=== PATIENT | male | born 1960 | race African-American/Black ===

== ENCOUNTER → 2017-05-01 | Outpatient (CLI) | payer OTHER ==
--- NOTE | 2017-05-01 11:03 | KCIC ---
Limited right lower quadrant ultrasound HISTORY: Abdominal distention, evaluate for hernia COMPARISON: None FINDINGS: Multiple sonographic images of the abdomen are submitted. There is severe quantity of ascites present. Tract of fluid extends into the right groin, this pocket of fluid on the order of 6 x 1.6 x 4.8 cm in size, apparently at site of hernia tract given continuity with other free fluid in the abdomen. Visualized liver is enlarged at 25 cm longitudinal, diffuse prominent coarsened echotexture. IMPRESSION: 1. There is large quantity of ascites present. Tract of fluid extends into the right groin region presumably at site of hernia as apparently contiguous with other free fluid. 2. Visualized liver is enlarged, diffuse coarsening of the hepatic echotexture likely due to steatosis versus other hepatocellular disease. Electronically signed by: Donald Browning MD (05/01/2017 10:59 AM)
== END | disposition home or self-care (01) ==
LOC: KCIC US 09:19
PROVIDERS: ATTEND Family Medicine
DX: K40.90 Unilateral inguinal hernia, without obstruction or gangrene, not specified as recurrent (principal); R18.8 Other ascites
CPT/HCPCS: 93975

== ENCOUNTER → 2017-05-11 | Outpatient (CLI) | payer OTHER ==
[~2017-05-11] MED LIST: AMLO1TAB95 PO; BYSTOLIC2.5 MG PO; GADOBUTROL 10 MMOL/10 ML VIAL IV ONE
--- NOTE | 2017-05-11 13:24 | KCIC ---
History: Ascites, abnormal abdominal ultrasound. Comparison: Limited abdominal ultrasound May 01, 2017. Technique: MRI of the abdomen with attention to the liver was performed using multiple planes and sequences both prior to and after intravenous gadolinium, 10 mL Gadavist. Findings: The liver demonstrates a mildly nodular contour. In the midclavicular line, the liver is mildly enlarged measuring about 19 cm in craniocaudal dimension. There is severe but asymmetric fatty infiltration of the liver. No focal, enhancing liver masses are identified. Mild-moderate ascites is seen. There is evidence of infrarenal abdominal aortic aneurysm which measures up to 4.3 cm in AP dimension. Bilateral kidneys enhance symmetrically. Bilateral adrenal glands and pancreas are unremarkable. The spleen demonstrates several foci of susceptibility artifact on multiple sequences which are probably areas of coarse calcification. Spleen is enlarged measuring 14.9 cm in craniocaudal dimension. Gallbladder on the T2-weighted images may demonstrate a mild amount of fine gallstones versus gallbladder sludge. Impression: 1. Liver is enlarged and demonstrates a mildly nodular contour. Findings are compatible with early changes of the cirrhosis and. There is also evidence of severe, asymmetric fatty infiltration of the liver. 2. Splenomegaly. Mild-moderate ascites. 3. Infrarenal abdominal aortic aneurysm estimated to measure 4.3 cm. 4. Question small amount of fine gallstones versus gallbladder sludge. Electronically signed by: Siddhartha Armstrong MD (05/11/2017 1:21 PM)
== END | disposition home or self-care (01) ==
LOC: KCIC MRI 08:28
PROVIDERS: ATTEND Family Medicine
DX: R93.5 Abnormal findings on diagnostic imaging of other abdominal regions, including retroperitoneum (principal); R18.8 Other ascites; K76.0 Fatty (change of) liver, not elsewhere classified; I71.4 Abdominal aortic aneurysm, without rupture; R16.1 Splenomegaly, not elsewhere classified
CPT/HCPCS: 74183; A9585

== ENCOUNTER → 2017-08-23 | Outpatient (CLI) | payer OTHER ==
[~2017-08-23] VITALS: Ht 177.8 cm; Wt 94.8 kg
[~2017-08-23] MED LIST changes: +ALBUMIN HUMAN 25% 100 ML IV ONE; +AMLO10TA2 PO; +ASPI-482 PO; +ATEN100T PO; +ATOR40TA59 PO; +CRESTOR20 MG PO; +FEBU40TA PO; +FURO20TA3 PO; -GADOBUTROL 10 MMOL/10 ML VIAL IV ONE; +LEVO25TA4 PO; +LIDOCAINE 1% / SOD BICARB 8.4% 20 ML VIAL. IJ ONE; +PROVENTIL HFA6.7 GM IH; +SPIR50TA2 PO; +TIOT18CA IH
[2017-08-23 07:40] LABS: BASO % 0 % (0-3); EOS % 3 % (0-3); HEMATOCRIT 35.6 % (39.0-53.0); HEMOGLOBIN 11.2 g/dL (13.0-17.5); LYMPH # 1.1 x10^3/uL (1.0-4.8); LYMPH % 14 % (24-48); MEAN CORPUSCULAR HEMOGLOBIN 29 pg (25-35); MEAN CORPUSCULAR HGB CONC 32 g/dL (31-37); MEAN CORPUSCULAR VOLUME 93 fL (79-100); MONO % 6 % (0-9); NEUT % 77 % (31-73); PLATELET COUNT 286 x10^3/uL (140-400); RED BLOOD COUNT 3.84 x10^6/uL (4.30-5.70); RED CELL DISTRIBUTION WIDTH 16.2 % (11.5-14.5); WHITE BLOOD COUNT 7.9 x10^3/uL (4.0-11.0)
[2017-08-23 08:01] LABS: INR 1.3 (0.8-1.1)
[2017-08-23 08:24] VITALS: BP 137/81
--- NOTE | 2017-08-23 08:49 | PDOC1 ---
History and Physical Date of Procedure Date of Admission 08/23/17 Procedure Procedure Paracentesis Indication Indication Ascites History of Present Illness Reason for Visit Same Past Medical History Past Medical History Cirrhosis, HTN, hyperlipidemia, COPD, gout Past Surgical History Past Surgical History Reviewed and none pertinent Current Medications Current Medications Current Medications Lidocaine/Sodium Bicarbonate (Buffered Lidocaine 1%) 20 ml STK-MED ONCE IJ ; Start 08/23/17 at 07:59; Stop 08/23/17 at 08:00; Status DC Active Scripts Active Reported Proventil Hfa Inhaler (Albuterol Sulfate) 6.7 Gm Hfa.aer.ad 1 Puff IH PRN Q4HRS PRN Spiriva (Tiotropium [place]) 18 Mcg Cap.w.dev 1 Cap IH DAILY Furosemide 20 Mg Tablet 1 Tab PO DAILY Levothyroxine Sodium 25 Mcg Tablet 1 Tab PO DAILY Spironolactone 50 Mg Tablet 1 Tab PO DAILY Atenolol 100 Mg Tablet 1 Tab PO DAILY Amlodipine Besylate 10 Mg Tablet 10 Mg PO DAILY Atorvastatin Calcium 40 Mg Tablet 1 Tab PO DAILY Uloric (Febuxostat) 40 Mg Tablet 1 Tab PO DAILY Allergies Allergies: Coded Allergies: No Known Drug Allergies (Unverified , 05/10/16) Physical Exam Vital Signs Vital Signs Date Time Temp Pulse Resp B/P (MAP) Pulse Ox O2 Delivery O2 Flow Rate FiO2 08/23/17 08:24 98.3 81 18 137/81 (99) 94 Room Air 98.3 Other GENERAL: No apparent distress. Alert and oriented. HEENT: Head normocephalic, atraumatic. NECK: Supple LUNGS: Clear to auscultation. HEART: RRR, S1, S2 present, pulses intact ABDOMEN: Distended, soft, positive bowel sounds. EXTREMITIES: No cyanosis or edema. NEUROLOGIC: Normal speech, normal tone PSYCHIATRIC: Normal affect, normal mood. SKIN: No ulceration. Assessment Assessment Ascites Problems: Plan Plan Paracentesis MARLY DECKER MD Aug 23, 2017 08:49
[2017-08-23 08:53] VITALS: BP 135/76
[2017-08-23 09:09] VITALS: BP 130/77
[2017-08-23 09:40] VITALS: BP 111/64
--- NOTE | 2017-08-23 09:44 | PDOC ---
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
--- NOTE | 2017-08-23 10:01 | RAD ---
Procedure: Ultrasound guided paracentesis. Indication: Ascites The procedure, risks, and complications, to include damage to hollow and solid abdominal viscera, bleeding, peritonitis and infection were explained to the patient and they understood same and wished to proceed. Consent form signed. The right lower quadrant was prepped and draped using maximal sterile technique and 1% Xylocaine used for local anesthesia. Ultrasound-guided paracentesis: Under ultrasound guidance, a large pocket of fluid was identified and an 18 gauge Yueh needle was inserted into the fluid and 6700 cc of thin, articular fluid was removed. The catheter was removed and pressure placed. An ultrasound image was saved and sent to PACS. The patient tolerated the procedure well and return to the recovery area in stable condition. IMPRESSION: Ultrasound-guided paracentesis.
== END | disposition home or self-care (01) ==
LOC: INTRAD 07:14
PROVIDERS: ATTEND Internal Medicine Gastroenterology
DX: R18.8 Other ascites (principal); F17.200 Nicotine dependence, unspecified, uncomplicated; J44.9 Chronic obstructive pulmonary disease, unspecified; I10 Essential (primary) hypertension
CPT/HCPCS: 36415; 49083; 85025; 85610; P9046

== ENCOUNTER 2017-10-10 08:26 | Outpatient (CLI) | payer OTHER ==
[2017-10-10] VITALS (8 sets, daily range): BP systolic 103–117; BP diastolic 68–75
[~2017-10-10] VITALS: Ht 177.8 cm; Wt 94.8 kg
[~2017-10-10 08:26] MED LIST changes: -ALBUMIN HUMAN 25% 100 ML IV ONE; -LIDOCAINE 1% / SOD BICARB 8.4% 20 ML VIAL. IJ ONE
[2017-10-10 08:55] LABS: BASO % 1 % (0-3); EOS % 2 % (0-3); HEMATOCRIT 38.9 % (39.0-53.0); HEMOGLOBIN 12.7 g/dL (13.0-17.5); LYMPH # 1.3 x10^3/uL (1.0-4.8); LYMPH % 22 % (24-48); MEAN CORPUSCULAR HEMOGLOBIN 30 pg (25-35); MEAN CORPUSCULAR HGB CONC 33 g/dL (31-37); MEAN CORPUSCULAR VOLUME 92 fL (79-100); MONO % 8 % (0-9); NEUT % 68 % (31-73); PLATELET COUNT 243 x10^3/uL (140-400); RED BLOOD COUNT 4.23 x10^6/uL (4.30-5.70); RED CELL DISTRIBUTION WIDTH 13.9 % (11.5-14.5); WHITE BLOOD COUNT 6.2 x10^3/uL (4.0-11.0)
[2017-10-10 09:03] LABS: INR 1.1 (0.8-1.1); PROTHROMBIN TIME PATIENT 13.2 SEC (11.7-14.0)
[2017-10-10] MEDS ORDERED: LIDOCAINE 1% / SOD BICARB 8.4% 20 ML VIAL. IJ ONE ×2 (09:09→10:15)
[2017-10-10] MEDS ORDERED: ALBUMIN HUMAN 25% 100 ML IV STA (10:59)
[2017-10-10] MEDS ORDERED: ALBUMIN HUMAN 25% 100 ML IV ONE (11:00)
--- NOTE | 2017-10-10 12:29 | RAD ---
Procedure: Ultrasound guided paracentesis. Indication: Ascites The procedure, risks, and complications, to include damage to hollow and solid abdominal viscera, bleeding, peritonitis and infection were explained. Informed consent was obtained. The right lower quadrant was prepped and draped using maximal sterile technique and 1% Xylocaine used for local anesthesia. Ultrasound-guided paracentesis: Under ultrasound guidance, a large pocket of fluid was identified and an 18 gauge Yueh needle was inserted into the fluid and 6700 cc of serosanguineous fluid was removed. The catheter was removed and pressure placed. An ultrasound image was saved and sent to PACS. The patient tolerated the procedure well and return to the recovery area in stable condition. Albumin replacement was ordered. IMPRESSION: Ultrasound-guided paracentesis.
== END 2017-10-10 12:30 | disposition home or self-care (01) ==
LOC: INTRAD 08:26
PROVIDERS: ATTEND Internal Medicine Gastroenterology
DX: R18.8 Other ascites (principal); I10 Essential (primary) hypertension; J44.9 Chronic obstructive pulmonary disease, unspecified; F17.200 Nicotine dependence, unspecified, uncomplicated; Z94.4 Liver transplant status
CPT/HCPCS: 36415; 49083; 85025; 85610; P9046

== ENCOUNTER 2017-11-10 07:01 | Outpatient (CLI) | payer OTHER ==
[~2017-11-10] VITALS: Ht 177.8 cm; Wt 86.6 kg
[2017-11-10] VITALS (12 sets, daily range): BP systolic 106–128; BP diastolic 55–77
[2017-11-10 07:45] LABS: BASO # 0.1 x10^3/uL (0.0-0.2); BASO % 1 % (0-3); EOS % 1 % (0-3); HEMATOCRIT 36.6 % (39.0-53.0); HEMOGLOBIN 11.9 g/dL (13.0-17.5); LYMPH # 1.3 x10^3/uL (1.0-4.8); LYMPH % 20 % (24-48); MEAN CORPUSCULAR HEMOGLOBIN 30 pg (25-35); MEAN CORPUSCULAR HGB CONC 33 g/dL (31-37); MEAN CORPUSCULAR VOLUME 92 fL (79-100); MONO % 6 % (0-9); NEUT % 72 % (31-73); PLATELET COUNT 251 x10^3/uL (140-400); RED BLOOD COUNT 3.98 x10^6/uL (4.30-5.70); RED CELL DISTRIBUTION WIDTH 14.4 % (11.5-14.5); WHITE BLOOD COUNT 6.2 x10^3/uL (4.0-11.0)
[2017-11-10 07:56] LABS: INR 1.2 (0.8-1.1); PROTHROMBIN TIME PATIENT 14.7 SEC (11.7-14.0)
[2017-11-10] MEDS ORDERED: ALLO300T PO (08:19)
[2017-11-10] MEDS ORDERED: ALBUMIN HUMAN 25% 100 ML IV ONE ×2 (08:46→09:00)
--- NOTE | 2017-11-10 17:13 | RAD ---
Ultrasound-guided paracentesis 11/10/2017 8:35 AM Procedure: Informed consent was obtained. A timeout procedure was performed. Sonographic evaluation of the abdomen was performed demonstrating . The right lower quadrant was prepped and draped using sterile barrier technique. Elements of maximal sterile barrier technique including the use of a cap, mask, sterile gown, sterile gloves sterile sheet, appropriate hand hygiene, and 2% chlorhexidine for cutaneous antisepsis (or acceptable alternative antiseptic per current guidelines) were followed for this procedure. 1% lidocaine without epinephrine was administered for local anesthesia. Real-time ultrasonographic guidance was used in passing a 5 Turkmen Yueh catheter into the fluid collection. 6 L of serous ascites was removed. The catheter was removed and pressure held to achieve hemostasis. A sterile dressing was applied. Impression: Successful ultrasound-guided paracentesis
== END 2017-11-10 10:00 | disposition home or self-care (01) ==
LOC: INTRAD 07:01
PROVIDERS: ATTEND Internal Medicine Gastroenterology
DX: R18.8 Other ascites (principal); I10 Essential (primary) hypertension; J44.9 Chronic obstructive pulmonary disease, unspecified; F17.200 Nicotine dependence, unspecified, uncomplicated; Z72.89 Other problems related to lifestyle
CPT/HCPCS: 36415; 49083; 85025; 85610; P9046

== ENCOUNTER 2017-12-19 06:56 | Outpatient (CLI) | payer OTHER ==
[2017-12-19 07:22] LABS: ADD MAN DIFF? NO
[2017-12-19 07:49] LABS: BASO % 1 % (0-3); EOS # 0.1 x10^3/uL (0.0-0.7); EOS % 2 % (0-3); HEMATOCRIT 36.5 % (39.0-53.0); LYMPH # 1.1 x10^3/uL (1.0-4.8); LYMPH % 18 % (24-48); MEAN CORPUSCULAR HEMOGLOBIN 30 pg (25-35); MEAN CORPUSCULAR HGB CONC 33 g/dL (31-37); MEAN CORPUSCULAR VOLUME 92 fL (79-100); MONO # 0.4 x10^3/uL (0.0-1.1); MONO % 7 % (0-9); NEUT # 4.6 x10^3uL (1.8-7.7); NEUT % 73 % (31-73); PLATELET COUNT 265 x10^3/uL (140-400); RED BLOOD COUNT 3.96 x10^6/uL (4.30-5.70); RED CELL DISTRIBUTION WIDTH 15.2 % (11.5-14.5); WHITE BLOOD COUNT 6.3 x10^3/uL (4.0-11.0)
[2017-12-19 08:11] LABS: INR 1.2 (0.8-1.1); PROTHROMBIN TIME PATIENT 14.3 SEC (11.7-14.0)
[2017-12-19] MEDS ORDERED: LIDOCAINE WITH 8.4% SOD BICARB 3 ML DISP.SYRIN. (08:14)
[2017-12-19] MEDS: LIDOCAINE WITH 8.4% SOD BICARB 3 ML DISP.SYRIN. IJ (09:20)
== END 2017-12-19 10:15 | disposition home or self-care (01) ==
LOC: INTRAD 06:56
DX: R18.8 Other ascites (principal); I10 Essential (primary) hypertension; J44.9 Chronic obstructive pulmonary disease, unspecified; F17.200 Nicotine dependence, unspecified, uncomplicated; Z72.89 Other problems related to lifestyle
CPT/HCPCS: 36415; 49083; 85025; 85610

== ENCOUNTER → 2018-01-22 | Outpatient (CLI) | payer OTHER | END | disposition home or self-care (01) | LOC: KCIC 13:51 | DX: J44.9 Chronic obstructive pulmonary disease, unspecified (principal); J90 Pleural effusion, not elsewhere classified; Z87.891 Personal history of nicotine dependence | CPT/HCPCS: 71046 ==

== ENCOUNTER 2018-01-31 07:00 | Outpatient (CLI) | payer OTHER ==
[2018-01-31 07:37] LABS: ADD MAN DIFF? NO
[2018-01-31 07:43] LABS: BASO % 1 % (0-3); EOS # 0.1 x10^3/uL (0.0-0.7); EOS % 2 % (0-3); HEMATOCRIT 40.4 % (39.0-53.0); HEMOGLOBIN 13.5 g/dL (13.0-17.5); LYMPH # 1.4 x10^3/uL (1.0-4.8); LYMPH % 24 % (24-48); MEAN CORPUSCULAR HEMOGLOBIN 32 pg (25-35); MEAN CORPUSCULAR HGB CONC 33 g/dL (31-37); MEAN CORPUSCULAR VOLUME 95 fL (79-100); MONO # 0.4 x10^3/uL (0.0-1.1); MONO % 7 % (0-9); NEUT # 3.9 x10^3uL (1.8-7.7); NEUT % 66 % (31-73); PLATELET COUNT 218 x10^3/uL (140-400); RED BLOOD COUNT 4.24 x10^6/uL (4.30-5.70); RED CELL DISTRIBUTION WIDTH 15.6 % (11.5-14.5); WHITE BLOOD COUNT 5.9 x10^3/uL (4.0-11.0)
[2018-01-31 07:55] LABS: INR 1.1 (0.8-1.1); PARTIAL THROMBOPLASTIN TIME 27 SEC (24-38); PROTHROMBIN TIME PATIENT 13.4 SEC (11.7-14.0)
[2018-01-31] MEDS ORDERED: LIDOCAINE WITH 8.4% SOD BICARB 3 ML DISP.SYRIN. (08:45)
[2018-01-31] MEDS: LIDOCAINE WITH 8.4% SOD BICARB 3 ML DISP.SYRIN. INJ (09:22)
== END 2018-01-31 10:10 | disposition home or self-care (01) ==
LOC: INTRAD 07:00
DX: R18.8 Other ascites (principal); K74.60 Unspecified cirrhosis of liver; I10 Essential (primary) hypertension; J44.9 Chronic obstructive pulmonary disease, unspecified
CPT/HCPCS: 36415; 49083; 85025; 85610; 85730

== ENCOUNTER → 2018-07-12 | Outpatient (CLI) | payer OTHER ==
[~2018-07-12] VITALS: Ht 177.8 cm; Wt 89.8 kg
[~2018-07-12] MED LIST changes: +ALLO300T PO; +ASPI-612 PO; +LIDOCAINE WITH 8.4% SOD BICARB 3 ML DISP.SYRIN. ONE; +MILK87.5 PO; -SPIR50TA2 PO; +SPIR50TA4 PO
[2018-07-12 07:43] LABS: BASO % 1 % (0-3); EOS # 0.1 x10^3/uL (0.0-0.7); EOS % 2 % (0-3); HEMATOCRIT 35.5 % (39.0-53.0); LYMPH # 1.3 x10^3/uL (1.0-4.8); LYMPH % 23 % (24-48); MEAN CORPUSCULAR HEMOGLOBIN 32 pg (25-35); MEAN CORPUSCULAR HGB CONC 34 g/dL (31-37); MEAN CORPUSCULAR VOLUME 95 fL (79-100); MONO # 0.4 x10^3/uL (0.0-1.1); MONO % 7 % (0-9); NEUT # 3.8 x10^3uL (1.8-7.7); NEUT % 68 % (31-73); PLATELET COUNT 166 x10^3/uL (140-400); RED BLOOD COUNT 3.73 x10^6/uL (4.30-5.70); RED CELL DISTRIBUTION WIDTH 13.7 % (11.5-14.5); WHITE BLOOD COUNT 5.5 x10^3/uL (4.0-11.0)
[2018-07-12 07:46] VITALS: BP 131/80
[2018-07-12 08:02] LABS: PROTHROMBIN TIME PATIENT 13.9 SEC (11.7-14.0)
== END | disposition home or self-care (01) ==
LOC: INTRAD 06:54
PROVIDERS: ATTEND Internal Medicine Gastroenterology
DX: K74.60 Unspecified cirrhosis of liver (principal); E78.5 Hyperlipidemia, unspecified; E78.00 Pure hypercholesterolemia, unspecified; E87.5 Hyperkalemia; E83.42 Hypomagnesemia; K21.9 Gastro-esophageal reflux disease without esophagitis; J44.9 Chronic obstructive pulmonary disease, unspecified; Z87.891 Personal history of nicotine dependence; Z82.49 Family history of ischemic heart disease and other diseases of the circulatory system
CPT/HCPCS: 36415; 76705; 85025; 85610

== ENCOUNTER → 2020-01-22 | Outpatient (CLI) | payer OTHER ==
[2018-07-12 07:46] VITALS: BP 131/80
[~2020-01-22] MED LIST changes: -AMLO10TA2 PO; +AMLO10TA8 PO; -LIDOCAINE WITH 8.4% SOD BICARB 3 ML DISP.SYRIN. ONE
--- NOTE | 2020-01-22 10:44 | KCIC ---
SCAN OF ABDOMINAL AORTA History: Abdominal aortic aneurysm Comparison: February 13, 2019 Findings: Multiple sonographic images of the abdominal aorta are submitted. Iliac arteries could not be visualized on this exam due to bowel gas. Proximal abdominal aorta measured up to 3.1 cm (similar), mid abdominal aorta up to 3 cm (previously up to 2.8 cm), distally up to 4.7 cm (previously up to about 4.6 cm). Aneurysmal dilatation of the abdominal aorta distally extends over about 6.7 cm in AP length. Peak systolic velocities of the abdominal aorta were 68 cm proximally, 61 cm/s near the mid segment, and 31 cm/s distally. There is segmental visualization of the inferior vena cava. Impression: 1. There is again aneurysmal dilatation of the abdominal aorta greater distally up to 4.7 cm, minimally increased compared with the previous exam. Electronically signed by: Donald Browning MD (01/22/2020 10:41 AM) [id number]
== END ==
LOC: KCIC US 09:36
PROVIDERS: ATTEND Family Medicine
DX: I71.4 Abdominal aortic aneurysm, without rupture (principal)
CPT/HCPCS: 76770

== ENCOUNTER 2020-04-16 18:52 | Inpatient (IN) | payer OTHER ==
[~2020-04-16] VITALS: Ht 177.8 cm; Wt 88.1 kg
--- NOTE | 2020-04-16 20:37 | RAD ---
Examination: CHEST AP ONLY History: Reason: soa / Spl. Instructions: / History: Comparison: 02/13/2018 AP view of the chest. Findings: AP portable upright frontal view of the chest was obtained. The cardiomediastinal silhouette is normal. Lungs are clear. There is no pneumothorax. No pleural effusion is appreciated. No acute bone abnormality. IMPRESSION: No acute cardiopulmonary process. Electronically signed by: Clyde Hendricks MD (04/16/2020 8:34 PM) [id number]
--- NOTE | 2020-04-16 20:52 | PHYS DOC ---
Past Medical History Past Medical History: COPD, Hypertension, Other Additional Past Medical Histor: gout Past Surgical History: No Surgical History Smoking Status: Former Smoker Alcohol Use: Heavy Drug Use: None General Adult EDM: Chief Complaint: WEAKNESS/GENERALIZED HPI: HPI: Patient is a 59-year-old male with a several day history of generalized weakness. Patient states he feels so weak now that he is unable to even walk. He also states he gets very short of breath when he tries to exert himself. He denies any fever chills or sweats. He has had a cough but this is been nonproductive. He denies any nausea or vomiting. He does state he has had some liver cirrhosis in the past and he now seems to have a little more abdominal swelling. [] Review of Systems: Review of Systems: Constitutional: Denies fever or chills. [] Eyes: Denies change in visual acuity. [] HENT: Denies nasal congestion or sore throat. [] Respiratory: Reports shortness of breath. [] Cardiovascular: Denies chest pain or edema. [] GI: Per HPI. [] : Denies dysuria. [] Musculoskeletal: Denies back pain or joint pain. [] Integument: Denies rash. [] Neurologic: Denies headache, focal weakness or sensory changes. [] Endocrine: Denies polyuria or polydipsia. [] Lymphatic: Denies swollen glands. [] Psychiatric: Reports depression. [] Heart Score: Risk Factors: Risk Factors: DM, Current or recent (<one month) smoker, HTN, HLP, family history of CAD, obesity. Risk Scores: Score 0 - 3: 2.5% MACE over next 6 weeks - Discharge Home Score 4 - 6: 20.3% MACE over next 6 weeks - Admit for Clinical Observation Score 7 - 10: 72.7% MACE over next 6 weeks - Early Invasive Strategies Allergies: Allergies: Allergies Coded Allergies Type Severity Reaction Last Updated Verified No Known Drug Allergies 05/10/16 No Physical Exam: PE: Constitutional: Well developed, well nourished, appears acutely ill and smells very ketotic [] HENT: Normocephalic, atraumatic, bilateral external ears normal, oropharynx moist, very poor dentition [] Eyes: PERRLA, EOMI, conjunctiva normal, no discharge. [] Neck: Normal range of motion, no tenderness, supple, no stridor. [] Cardiovascular:Heart rate regular rhythm, no murmur [] Lungs & Thorax: Bilateral breath sounds clear to auscultation [] Abdomen: Periumbilical hernia that is easily reducible, bowel sounds normal, soft, no tenderness, no masses, no pulsatile masses. [] Skin: Warm, dry, no erythema, no rash. [] Back: No tenderness, no CVA tenderness. [] Extremities: No tenderness, no cyanosis, no clubbing, ROM intact, no edema. [] Neurologic: Alert and oriented X 3, normal motor function, normal sensory function, no focal deficits noted. [] Psychologic: Depressed affect [] Current Patient Data: Vital Signs: Vital Signs Date Time Temp Pulse Resp B/P (MAP) Pulse Ox O2 Delivery O2 Flow Rate FiO2 04/16/20 19:12 97.9 82 15 144/82 (102) 97 Room Air 97.9 EKG: EKG: EKG: Normal sinus rhythm nonspecific ST-T changes no obvious ischemia [] Radiology/Procedures: Radiology/Procedures: []REASON: abd pain PROCEDURE: CT ABDOMEN PELVIS WO CONTRAST CT ABDOMEN PELVIS WO CONTRAST INDICATION: abd pain EXAM: Noncontrast CT of the abdomen and pelvis. Coronal and sagittal reformatted images were performed. PQRS compliance statement: One or more of the following individualized dose reduction techniques were utilized for this examination: 1. Automated exposure control 2. Adjustment of the mA and/or kV according to patient size 3. Use of iterative reconstruction technique COMPARISON: None FINDINGS: No free air, free fluid, or fluid collection. Lower chest: The visualized lower lungs are aerated. No pleural or pericardial effusion. Coronary artery atherosclerotic disease. ABDOMEN: Liver: The noncontrast liver is homogeneous in attenuation. Gallbladder and biliary: Cholelithiasis. Normal caliber bile ducts. Spleen: Normal spleen. Pancreas: The noncontrast pancreas is homogeneous in attenuation without peripancreatic inflammatory changes. Adrenal glands: Normal adrenal glands. Kidneys and ureters: No opaque urinary calculi. Normal kidneys and ureters. GI tract: The stomach is decompressed and poorly evaluated. Normal caliber small bowel and colon. Mild colonic diverticulosis. Normal appendix. Vascular structures: Moderate aortoiliac atherosclerotic disease. Infrarenal abdominal aortic aneurysm measuring 4.8 x 4.7 cm. Lymph nodes: No lymphadenopathy in the abdomen or pelvis. PELVIS: Genitourinary system: Normal bladder. SKELETAL STRUCTURES AND SOFT TISSUES: Degenerative changes of the spine. Mild chronic height loss at L2. Fat-containing periumbilical hernia containing a loop of normal caliber small bowel. IMPRESSION: 1. No acute findings. 2. Infrarenal abdominal aortic aneurysm measuring 4.8 cm in diameter. 3. Moderate sized periumbilical hernia containing a loop of normal caliber small bowel. Impression: REASON: soa PROCEDURE: CHEST AP ONLY Examination: CHEST AP ONLY History: Reason: soa / Spl. Instructions: / History: Comparison: 02/13/2018 AP view of the chest. Findings: AP portable upright frontal view of the chest was obtained. The cardiomediastinal silhouette is normal. Lungs are clear. There is no pneumothorax. No pleural effusion is appreciated. No acute bone abnormality. IMPRESSION: No acute cardiopulmonary process. Course & Med Decision Making: Course & Med Decision Making Pertinent Labs and Imaging studies reviewed. (See chart for details) [] CRITICAL CARE: Time spent was 35 minutes. This includes medical management, evaluation, reevaluation, discussion with consultants and family. Critical Care does NOT include time spent on separately billed procedures. ED course: Evaluation reveals a 59-year-old male that appears acutely ill. His blood sugar is greater than 1100 his potassium is 7.3. He was started on an insulin drip and he was given multiple medications to help with his potassium. I spoke with Dr. Jewell who agreed to accept the patient for admission this is a new onset diabetes for this patient. Kaiden Disclaimer: Kaiden Disclaimer: This electronic medical record was generated, in whole or in part, using a voice recognition dictation system. Departure Departure Impression: Primary Impression: Diabetic ketoacidosis Qualified Codes: E11.10 - Type 2 diabetes mellitus with ketoacidosis without coma Additional Impressions: Hyperkalemia Renal failure Qualified Codes: N17.9 - Acute kidney failure, unspecified Disposition: 09 ADMITTED INPATIENT Admitting Physician: Rigo Jewell Condition: CRITICAL Referrals: RIGO JEWELL MD (PCP) OLIVER WALTER DO April 16, 2020 20:52
[2020-04-16 20:59] LABS: ALBUMIN 3.5 g/dL (3.4-5.0); ALBUMIN/GLOBULIN RATIO 0.7 (1.0-1.7); CREATININE 2.2 mg/dL (0.7-1.3); GFR 37.1; MAGNESIUM 3.5 mg/dL (1.8-2.4); TOTAL BILIRUBIN 0.9 mg/dL (0.2-1.0); TOTAL PROTEIN 8.5 g/dL (6.4-8.2)
[2020-04-16] MEDS ORDERED: IOHEXOL 300 MG/ML 100ML VIAL. IV ONE (21:00)
[2020-04-16 21:07] LABS: BASO % 0 % (0-3); EOS % 0 % (0-3); HEMATOCRIT 39.3 % (39.0-53.0); HEMOGLOBIN 12.2 g/dL (13.0-17.5); LYMPH # 0.6 x10^3/uL (1.0-4.8); LYMPH % 8 % (24-48); MEAN CORPUSCULAR HEMOGLOBIN 30 pg (25-35); MEAN CORPUSCULAR HGB CONC 31 g/dL (31-37); MEAN CORPUSCULAR VOLUME 95 fL (79-100); MONO # 0.3 x10^3/uL (0.0-1.1); MONO % 5 % (0-9); NEUT # 6.3 x10^3/uL (1.8-7.7); NEUT % 87 % (31-73); PLATELET COUNT 247 x10^3/uL (140-400); RED BLOOD COUNT 4.13 x10^6/uL (4.30-5.70); RED CELL DISTRIBUTION WIDTH 14.6 % (11.5-14.5); WHITE BLOOD COUNT 7.3 x10^3/uL (4.0-11.0)
[2020-04-16 21:17] LABS: POTASSIUM 7.6 mmol/L (3.5-5.1)
[2020-04-16 21:29] LABS: % BANDS 1 % (0-9); % LYMPHS 9 % (24-48); % MONOS 3 % (0-10); % SEGS 87 % (35-66); PLT ESTIMATE ADEQUATE (ADEQUATE)
[2020-04-16] MEDS ORDERED: SODIUM BICARB ADULT 8.4% 50 MEQ/50 ML DISP.SYRIN. IV ONE (21:45)
[2020-04-16] MEDS ORDERED: IV NORMAL SALINE 1000ML BAG 1,000 ML IV ONE (21:45)
[2020-04-16] MEDS ORDERED: SODIUM POLYSTYRENE SULFON/SORB 15 GM/60 ML ORAL.SUSP PO ONE (21:45)
[2020-04-16] MEDS ORDERED: INSULIN,REGULAR 100 UNIT DRIP 100 ML IV ONE (21:45)
[2020-04-16] MEDS ORDERED: CALCIUM GLUCONATE 1,000 MG/10 ML VIAL. IVP ONE (21:45)
[2020-04-16 22:09] LABS: BILIRUBIN,URINE MODERATE (NEG); CLARITY,URINE CLEAR; COLOR,URINE YELLOW; NITRITE,URINE NEGATIVE (NEG); PROTEIN,URINE NEGATIVE (NEG-TRACE); UROBILINOGEN,URINE 0.2 mg/dL (0.2 mg/dL)
[2020-04-16 22:14] LABS: BACTERIA,URINE 0 /HPF (0-FEW); RBC,URINE 0 /HPF (0-2); SQUAMOUS EPITHELIAL CELL,UR FEW /LPF; WBC,URINE 0 /HPF (0-4)
[2020-04-16] MEDS ORDERED: ONDANSETRON PF 4 MG/2 ML VIAL. IVP ONE (22:15)
--- NOTE | 2020-04-16 22:17 | RAD ---
CT ABDOMEN PELVIS WO CONTRAST INDICATION: abd pain EXAM: Noncontrast CT of the abdomen and pelvis. Coronal and sagittal reformatted images were performed. PQRS compliance statement: One or more of the following individualized dose reduction techniques were utilized for this examination: 1. Automated exposure control 2. Adjustment of the mA and/or kV according to patient size 3. Use of iterative reconstruction technique COMPARISON: None FINDINGS: No free air, free fluid, or fluid collection. Lower chest: The visualized lower lungs are aerated. No pleural or pericardial effusion. Coronary artery atherosclerotic disease. ABDOMEN: Liver: The noncontrast liver is homogeneous in attenuation. Gallbladder and biliary: Cholelithiasis. Normal caliber bile ducts. Spleen: Normal spleen. Pancreas: The noncontrast pancreas is homogeneous in attenuation without peripancreatic inflammatory changes. Adrenal glands: Normal adrenal glands. Kidneys and ureters: No opaque urinary calculi. Normal kidneys and ureters. GI tract: The stomach is decompressed and poorly evaluated. Normal caliber small bowel and colon. Mild colonic diverticulosis. Normal appendix. Vascular structures: Moderate aortoiliac atherosclerotic disease. Infrarenal abdominal aortic aneurysm measuring 4.8 x 4.7 cm. Lymph nodes: No lymphadenopathy in the abdomen or pelvis. PELVIS: Genitourinary system: Normal bladder. SKELETAL STRUCTURES AND SOFT TISSUES: Degenerative changes of the spine. Mild chronic height loss at L2. Fat-containing periumbilical hernia containing a loop of normal caliber small bowel. IMPRESSION: 1. No acute findings. 2. Infrarenal abdominal aortic aneurysm measuring 4.8 cm in diameter. 3. Moderate sized periumbilical hernia containing a loop of normal caliber small bowel. Electronically signed by: Donald Masters MD (04/16/2020 10:14 PM) [id number]
[2020-04-16 22:26] LABS: BASE EXCESS ABG -13 mmol/L (-3-3); HCO3 ABG 12 mmol/L (21-28); PCO2 ABG 25 mmHg (35-46); PO2 ABG 83 mmHg (65-108); SAT O2 ABG 95 % (92-99)
[2020-04-16 22:33] LABS: FIO2 ABG 21
[2020-04-17] VITALS (23 sets, daily range): BP systolic 73–119; BP diastolic 49–69
[2020-04-17] MEDS ORDERED: IV NORMAL SALINE 1000ML BAG 1,000 ML IV SCH ×2 (02:15→02:30)
[2020-04-17] MEDS: INSULIN REGULAR VIAL 100 UNIT in IV NORMAL SALINE 100ML 100 ML IV PRN ×2 (02:50→10:04)
[2020-04-17 03:46] LABS: CALCIUM 9.7 mg/dL (8.5-10.1); CREATININE 2.2 mg/dL (0.7-1.3); GFR 37.1
[2020-04-17 03:50] LABS: MAGNESIUM 3.3 mg/dL (1.8-2.4); PHOSPHORUS 5.4 mg/dL (2.6-4.7)
--- NOTE | 2020-04-17 06:36 | EKG ---
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
[2020-04-17] MEDS ORDERED: IV DEXTROSE 5 %-0.45 % NACL 1,000 ML IV SCH (06:45)
--- NOTE | 2020-04-17 07:33 | NUR ---
Patient arrived to CVICU room 265 via bed. Report received from DIONNA Mahajan in the ED. Patient alert and answers questions appropriately. DKA protocol in place. 1 L NS given in ED. Insulin infusing. Will continue to monitor and recheck labs.
[2020-04-17 08:34] LABS: CALCIUM 8.3 mg/dL (8.5-10.1); CREATININE 1.8 mg/dL (0.7-1.3); GFR 46.8; MAGNESIUM 2.4 mg/dL (1.8-2.4); POTASSIUM 3.7 mmol/L (3.5-5.1)
--- NOTE | 2020-04-17 08:36 | PDOC ---
Provider Note Provider Note [id number] ROMEL TENORIO MD April 17, 2020 08:36
[2020-04-17] MEDS: INSULIN GLARGINE SYRINGE. SQ SCH ×2 (09:11→21:48)
--- NOTE | 2020-04-17 10:11 | HP ---
ADMIT DATE: 04/16/2020 CHIEF COMPLAINT: Severe hyperglycemia and weakness. HISTORY OF PRESENT ILLNESS: A 59-year-old black male with history of alcoholic cirrhosis and ascites as well as COPD and aortic aneurysm, came in with 3 weeks prior to admission in the office with increasing weakness and fatigue. He was found to be mildly hypotensive at that time and taken off amlodipine. Laboratory studies were ordered, but the patient was unable to get to the lab. He came to the ER with increasing weakness and fatigue and found to have profound hyperglycemia, hyperkalemia, hyponatremia, renal failure, and metabolic acidosis, mild degree. He received insulin infusion overnight and IV saline and hypertonic saline and his potassium is down to 5. Sodium back to normal. Blood sugars down around the 250 range from over 1100. He relates thirst, nocturia, weakness and general diabetic symptoms for the last few months, but was unaware the diabetes could be an issue. He drinks a fair amount of pop and a modest amount of beer as far as his carbohydrate intake. PAST MEDICAL HISTORY: History of alcoholic cirrhosis for which he takes spironolactone and Lasix. He also takes atenolol for hypertension and was recently taken off amlodipine. MEDICATIONS: He takes allopurinol to help prevent gout. ALLERGIES: He has no known drug allergies. His aneurysm is 45 mm when last monitored. He has had no cardiovascular history. SOCIAL HISTORY: Quit drinking about 8 months ago. Quit smoking some time ago. He uses Dulera and Incruse for COPD. I believe that he is single, not employed. FAMILY HISTORY: Unremarkable. No diabetes in the family. REVIEW OF SYSTEMS: No other complaints except weight loss, dry mouth and usual diabetic symptoms. OBJECTIVE: ENT: Dental caries, dry mouth, otherwise unremarkable. NECK: No bruits, nodes or masses. LUNGS: Clear, without tachypnea. CARDIOVASCULAR: Regular rate. Heart rate 110. No murmur. ABDOMEN: Soft, benign and nontender. EXTREMITIES: Skin turgor decreased. Skin is dry. Pedal pulses reasonable. 2+ clubbing is noted. NEUROLOGIC: Physiologic. ASSESSMENT: New diagnosis of diabetes with diabetic ketoacidosis, profound hyperglycemia and secondary acute renal failure with hyperkalemia as well. He also has alcoholic cirrhosis, COPD and aortic aneurysm. PLAN: Continue IV fluids, IV insulin drip, currently at 9 units an hour and start Lantus today. We will follow up metabolically to hopefully full renal recovery and resolution of the hyperkalemia. ROMEL TENORIO MD DR: CANDE/gerber JOB#: [id number] / [id number]
[2020-04-17] MEDS ORDERED: IV NORMAL SALINE 250ML 250 ML IV ONE (10:15)
[2020-04-17] MEDS ORDERED: DEXTROSE 50% 25 GM / 50ML DISP.SYRIN. IV PRN (10:15)
[2020-04-17] MEDS: IV 1/2 NORMAL SALINE 1,000 ML IV SCH ×2 (10:53→20:05)
[2020-04-17] MEDS: IPRATROPIUM BROMIDE 0.5 MG/2.5 ML NEBU. NEB SCH ×2 (11:42→19:30)
[2020-04-17] MEDS: INSULIN LISPRO 300 UNITS/3 ML VIAL. SQ SCH ×2 (12:00→17:21)
[2020-04-17] MEDS ORDERED: IV 1/2 NORMAL SALINE 500 ML IV ONE (13:00)
[2020-04-17] MEDS: IV NORMAL SALINE 1000ML BAG 1,000 ML IV SCH ×3 (13:35→21:46)
--- NOTE | 2020-04-17 16:28 | NUR ---
SS following for discharge planning. SS reviewed pt chart and discussed with RNJeane. Pt is from home and is currently on room air. SS will continue to follow for discharge planning.
[2020-04-17 21:27] LABS: CALCIUM 7.4 mg/dL (8.5-10.1); CREATININE 1.1 mg/dL (0.7-1.3); GFR 82.6; POTASSIUM 3.9 mmol/L (3.5-5.1)
[2020-04-17] MEDS ORDERED: INSULIN LISPRO 300 UNITS/3 ML VIAL. SQ SCH (21:45)
[2020-04-17] MEDS: FAMOTIDINE 20 MG TABLET. PO SCH (21:46)
[2020-04-17] MEDS ORDERED: INSULIN LISPRO 300 UNITS/3 ML VIAL. SQ ONE (22:00)
[2020-04-18] VITALS (16 sets, daily range): BP systolic 85–131; BP diastolic 51–73
[2020-04-18 01:08] LABS: HEMOGLOBIN A1C 19.7 % (4.8-5.6)
[2020-04-18] MEDS: IPRATROPIUM BROMIDE 0.5 MG/2.5 ML NEBU. NEB SCH ×2 (07:30→20:05)
[2020-04-18] MEDS: INSULIN LISPRO 300 UNITS/3 ML VIAL. SQ SCH (07:56)
[2020-04-18] MEDS: FAMOTIDINE 20 MG TABLET. PO SCH ×2 (08:13→20:33)
[2020-04-18] MEDS: INSULIN GLARGINE SYRINGE. SQ SCH (08:18)
[2020-04-18] MEDS: IBUPROFEN 400 MG TABLET. PO PRN ×2 (10:43→23:07)
[2020-04-18] MEDS: IV NORMAL SALINE 1000ML BAG 1,000 ML IV SCH (10:56)
[2020-04-18 11:07] LABS: CALCIUM 7.6 mg/dL (8.5-10.1); CREATININE 0.9 mg/dL (0.7-1.3); GFR 104.2; POTASSIUM 3.6 mmol/L (3.5-5.1)
[2020-04-18 11:10] LABS: MAGNESIUM 1.6 mg/dL (1.8-2.4); PHOSPHORUS 1.6 mg/dL (2.6-4.7)
--- NOTE | 2020-04-18 11:22 | NUR ---
Dr. Jewell informed of 80/43 BP. no new orders. will monitor BP
--- NOTE | 2020-04-18 12:08 | PDOC ---
Provider Note Provider Note labs much better, feels better - a1c noted - will reduce lantus to 60/d, transfer, likely dc in am ROMEL TENORIO MD April 18, 2020 12:08
[2020-04-18] MEDS ORDERED: INSULIN GLARGINE SYRINGE. SQ SCH (17:00)
[2020-04-18] MEDS: metFORMIN 500 MG TABLET PO SCH (17:50)
[2020-04-19 02:58] VITALS: BP 111/66
[2020-04-19 06:30] VITALS: BP 120/72
[2020-04-19] MEDS: IPRATROPIUM BROMIDE 0.5 MG/2.5 ML NEBU. NEB SCH (07:54)
[2020-04-19] MEDS: metFORMIN 500 MG TABLET PO SCH (08:17)
[2020-04-19] MEDS: FAMOTIDINE 20 MG TABLET. PO SCH (08:17)
--- NOTE | 2020-04-19 08:57 | PDOC ---
Provider Note Provider Note [id number] ROMEL TENORIO MD April 19, 2020 08:57
--- NOTE | 2020-04-19 09:54 | DS ---
DATE OF DISCHARGE: 04/19/2020 HOSPITAL SUMMARY: A 59-year-old black male with history of cirrhosis and alcoholic liver disease, came in with increasing weakness, fatigue and inability to walk. His blood sugar was 1100. Potassium 7.6, sodium 121, creatinine 2.2 and pH 7.30 with metabolic acidosis. Renal function recovered totally normally as did potassium and sodium levels with treatment with insulin. Liver function tests were unremarkable. CBC was normal. The hemoglobin A1c was high at 19.7 and the urine showed glucose, but no other sign of infection. CT scan and chest x-ray were unremarkable. He was treated with IV insulin drip for about the next 18 hours and then switched to Lantus and sliding scale Humalog and added metformin just prior to discharge. His blood sugar is down around 100, doing very well and very comfortable to be followed as an outpatient at this point. FINAL DIAGNOSES: 1. Acute severe hyperglycemia secondary to diabetic ketoacidosis. 2. Pseudohyponatremia. 3. Acute renal failure secondary to dehydration. 4. Hyperkalemia secondary to metabolic acidosis and renal failure. OPERATIONS, PROCEDURES, COMPLICATIONS, CONSULTATIONS: None. DISPOSITION: He will take metformin 500 mg twice a day, Lantus 40 units at bedtime and adjust accordingly based on outpatient responses and dietary changes. Rest of home meds remain the same. He remains off atenolol and amlodipine. Office followup in 1 week. PROGNOSIS: Good. ROMEL TENORIO MD DR: CANDE/gerber JOB#: [id number] / [id number]
--- NOTE | 2020-04-19 10:46 | NUR ---
Discharge Note: ESTRADA SAUCEDA [facility] Discharge instructions and discharge home medications reviewed with Patient and a copy given. All questions have been answered and understanding verbalized. The following instructions and handouts were given: DM type 2, hyperglycemia, blood sugar monitoring Discontinued lines and drains: Peripheral IV intact. Patient discharged to Home or Self Care with Family Member via Wheelchair
[2020-04-19] MEDS ORDERED: INSULIN GLARGINE SYRINGE. SQ SCH (17:00)
== END 2020-04-19 10:50 | disposition home or self-care (01) | DRG 637 ==
LOC: ER 18:52 → ED HOLD 21:32 → CVICU 04-17 02:09
PROVIDERS: ADMIT Family Medicine; ATTEND Family Medicine
DX: E11.10 Type 2 diabetes mellitus with ketoacidosis without coma (principal); N17.0 Acute kidney failure with tubular necrosis; E87.1 Hypo-osmolality and hyponatremia; E86.0 Dehydration; E87.5 Hyperkalemia; I10 Essential (primary) hypertension; I71.4 Abdominal aortic aneurysm, without rupture; J44.9 Chronic obstructive pulmonary disease, unspecified; K42.9 Umbilical hernia without obstruction or gangrene; K70.30 Alcoholic cirrhosis of liver without ascites; Z87.891 Personal history of nicotine dependence; M10.9 Gout, unspecified
CPT/HCPCS: 36415; 36600; 71045; 74176; 80048; 80053; 81001; 82805; 82947; 82962; 83036; 83690; 83735; 84100; 84484; 85007; 85025; 93005; 94640; 94760; 96365; 96366; 96375; 99291; J0610; J1815; J2405; J3490; J7030; J7042; J7050; G0378; J7644

== ENCOUNTER → 2020-05-19 | Outpatient (CLI) | payer OTHER ==
[2020-04-19 06:30] VITALS: BP 120/72
--- NOTE | 2020-05-19 11:31 | CARD ---
MR#: [id number] Date of Study: 05/19/2020 Ordering Physician: ROMEL TENORIO, Referring Physician: ROMEL TENORIO Tech: Kathy Davila RDCS APPROVED REPORT EXAM: Two-dimensional and M-mode echocardiogram with Doppler and color Doppler. Other Information Quality : Good INDICATION Atrial Fibrillation 2D DIMENSIONS RVDd3.6 (2.9-3.5cm)Left Atrium(2D)3.8 (1.6-4.0cm) IVSd1.2 (0.7-1.1cm)Aortic Root(2D)3.2 (2.0-3.7cm) LVDd5.0 (3.9-5.9cm)LVOT Diameter2.1 (1.8-2.4cm) PWd1.2 (0.7-1.1cm)LVDs3.0 (2.5-4.0cm) FS (%) 30.0 %SV86.4 ml LVEF(%)60.0 (>50%) Aortic Valve AoV Peak Chalino.144.6cm/sAoV VTI24.7cm AO Peak GR.8.4mmHgLVOT Peak Chalino.112.0cm/s AO Mean GR.4mmHgAVA (VMAX)2.81cm2 TRINY (VTI)3.20cm2 Mitral Valve MV E Krxgsntb28.5cm/sMV DECEL BXTI901de MV A Whucgkqj07.8cm/sE/A Ratio1.0 Tricuspid Valve TR P. Grmxmrzy969ur/sRAP VOSTGFQO4hgPn TR Peak Gr.03lbDaXJFZ52ixXa Pulmonary Vein S1 Wfarhvrv59.9cm/sD2 Hynxpdjo56.3cm/s LEFT VENTRICLE The left ventricle is normal size. There is mild concentric left ventricular hypertrophy. The left ve ntricular systolic function is normal and the ejection fraction is within normal range. The Ejection Fraction is 55-60%. There is normal LV segmental wall motion. Transmitral Doppler flow pattern is abn ormal. RIGHT VENTRICLE The right ventricle is normal size. The right ventricular systolic function is normal. ATRIA The left atrium size is normal. The right atrium size is normal. The interatrial septum is intact wit h no evidence for an atrial septal defect or patent foramen ovale as noted on 2-D or Doppler imaging. AORTIC VALVE The aortic valve is moderately thickened but opens well. Doppler and Color Flow revealed trace aortic regurgitation. There is no significant aortic valvular stenosis. MITRAL VALVE The mitral valve is calcified but opens well. Mitral annular calcification is mild. There is no evide nce of mitral valve prolapse. There is no mitral valve stenosis. Doppler and Color-flow revealed mild mitral regurgitation. TRICUSPID VALVE The tricuspid valve is normal in structure and function. Doppler and Color Flow revealed trace tricus pid regurgitation. There is mild pulmonary hypertension. The PA pressure was estimated at 37 mmHg. Th ere is no tricuspid valve stenosis. PULMONIC VALVE The pulmonic valve is not well visualized. Doppler and Color Flow revealed trace pulmonic valvular re gurgitation. There is no pulmonic valvular stenosis. GREAT VESSELS The aortic root is normal in size. The ascending aorta is normal in size. The IVC is normal in size a nd collapses >50% with inspiration. PERICARDIAL EFFUSION There is no evidence of significant pericardial effusion. Critical Notification Critical Value: No <Conclusion> The left ventricular systolic function is normal and the ejection fraction is within normal range. Th e Ejection Fraction is 55-60%. There is normal LV segmental wall motion. Signed by : David Novoa, Electronically Approved : 05/19/2020 11:31:29
== END | disposition home or self-care (01) ==
LOC: ECHO 08:43
PROVIDERS: ATTEND Family Medicine
DX: I05.8 Other rheumatic mitral valve diseases (principal); I48.0 Paroxysmal atrial fibrillation; I27.20 Pulmonary hypertension, unspecified
CPT/HCPCS: 93306